=== PATIENT | female | born 1955 | race Caucasian/White ===

== ENCOUNTER 2018-09-16 08:35 | Emergency (ER) | payer MEDICAID, OTHER ==
[~2018-09-16] VITALS: Ht 162.6 cm; Wt 48.0 kg
[2018-09-16] MEDS ORDERED: ASPIRIN 81 MG TABLET CHEW PO ONE (09:30)
[2018-09-16] MEDS ORDERED: ESTR0.45 PO (09:45)
[2018-09-16] MEDS ORDERED: LEVO75TA5 PO (09:45)
[2018-09-16] MEDS ORDERED: PARO10TA56 PO (09:45)
[2018-09-16] MEDS ORDERED: ASPIRIN 81 MG TABLET CHEW ONE (09:48)
[2018-09-16 09:52] VITALS: BP 121/84
[2018-09-16 09:53] LABS: BASOPHILS # (AUTO) 0.03 x10^3/uL (0-0.1); BASOPHILS % (AUTO) 1 % (0-1); EOSINOPHILS # (AUTO) 0.03 x10^3/uL (0-0.4); EOSINOPHILS % (AUTO) 1 % (1-7); LYMPHOCYTES # (AUTO) 1.21 x10^3/uL (1-3.4); LYMPHOCYTES % (AUTO) 28 % (22-44); MD NO; MEAN CORPUSCULAR HEMOGLOBIN 30.8 pg (27.0-34.8); MEAN CORPUSCULAR HGB CONC 33.5 g/dL (32.4-35.8); MEAN CORPUSCULAR VOLUME 91.9 fL (80-100); MEAN PLATELET VOLUME 8.2 fL (7.4-10.4); MONOCYTES # (AUTO) 0.27 x10^3/uL (0.2-0.8); MONOCYTES % (AUTO) 6 % (2-9); NEUTROPHILS # (AUTO) 2.73 x10^3/uL (1.8-6.8); NEUTROPHILS % (AUTO) 64 % (42-75); PLATELET COUNT 192 x10^3/uL (130-400); RED BLOOD COUNT 4.75 x10^6/uL (3.82-5.3); RED CELL DISTRIBUTION WIDTH 12.3 % (9.6-15.2)
[2018-09-16 10:00] LABS: ALBUMIN 3.8 g/dL (3.4-5.0); ANION GAP 5 mmol/L (5-15); CHLORIDE 106 mmol/L (98-107)
[2018-09-16 10:06] LABS: TROPONIN I < 0.015 ng/mL (0.000-0.045)
--- NOTE | 2018-09-16 10:40 | NUR ---
PT ON MONITOR DURING STAY WITH SINUS RHYTHM NOTED. PA AT BEDSIDE GIVING PT DISCHARGE
== END 2018-09-16 10:43 | disposition home or self-care (01) ==
LOC: ED 10:37
DX: R07.89 Other chest pain (principal); R00.2 Palpitations; E03.9 Hypothyroidism, unspecified
CPT/HCPCS: 36415; 71045; 80048; 82040; 84484; 85025; 93005; 99284

== ENCOUNTER 2018-12-06 16:35 | Emergency (ER) | payer MEDICAID ==
[~2018-12-06] VITALS: Ht 162.6 cm; Wt 49.0 kg
[~2018-12-06 16:35] MED LIST: ESTR0.45 PO; LEVO75TA5 PO; PARO10TA56 PO
--- NOTE | 2018-12-06 16:35 | NUR ---
BIBA from home c/o chest pain ("heavy, pressure, dull") with nausea & SOB, onset 1600 today after shoveling; no resp distress on arrival; PIV, 250ml NS & 364mg [employer] per EMS; pt changed into gown, responds approp to staff, arrived at BS, call light within reach; cardiac, NIBP & SpO2 monitors in place.
[2018-12-06] MEDS ORDERED: MAALOX/HYOSCYAMINE/LIDOCAINE 45 ML BTL ONE (16:54)
[2018-12-06] MEDS ORDERED: MAALOX/HYOSCYAMINE/LIDOCAINE 45 ML BTL PO ONE (17:00)
[2018-12-06] MEDS ORDERED: ASPIRIN 81 MG TABLET CHEW PO ONE (17:00)
--- NOTE | 2018-12-06 17:04 | NUR ---
pt upright on gurney awake & comfortable, responds approp to staff, NAD, comfort measures provided, at BS, call light within reach.
[2018-12-06 17:14] LABS: BASOPHILS # (AUTO) 0.02 x10^3/uL (0-0.1); BASOPHILS % (AUTO) 0 % (0-1); EOSINOPHILS # (AUTO) 0.01 x10^3/uL (0-0.4); EOSINOPHILS % (AUTO) 0 % (1-7); LYMPHOCYTES # (AUTO) 1.07 x10^3/uL (1-3.4); LYMPHOCYTES % (AUTO) 17 % (22-44); MD NO; MEAN CORPUSCULAR HEMOGLOBIN 31.5 pg (27.0-34.8); MEAN CORPUSCULAR HGB CONC 33.2 g/dL (32.4-35.8); MEAN CORPUSCULAR VOLUME 95.1 fL (80-100); MEAN PLATELET VOLUME 8.1 fL (7.4-10.4); MONOCYTES % (AUTO) 5 % (2-9); NEUTROPHILS # (AUTO) 4.97 x10^3/uL (1.8-6.8); NEUTROPHILS % (AUTO) 78 % (42-75); PLATELET COUNT 181 x10^3/uL (130-400); RED BLOOD COUNT 4.42 x10^6/uL (3.82-5.3); RED CELL DISTRIBUTION WIDTH 12.1 % (9.6-15.2)
[2018-12-06 17:25] LABS: ALBUMIN 3.8 g/dL (3.4-5.0); ANION GAP 3 mmol/L (5-15); CALCIUM 8.7 mg/dL (8.5-10.1); CHLORIDE 108 mmol/L (98-107); CREATININE 0.88 mg/dL (0.55-1.02)
[2018-12-06 17:29] LABS: TROPONIN I < 0.015 ng/mL (0.000-0.045)
[2018-12-06 18:02] VITALS: BP 127/78
== END 2018-12-06 18:12 | disposition home or self-care (01) ==
LOC: ED 17:38
DX: R07.2 Precordial pain (principal)
CPT/HCPCS: 36415; 71045; 80048; 82040; 84484; 85025; 93005; 99284